=== PATIENT | female | born 1995 | race Hispanic/Latino ===

== ENCOUNTER 2017-06-06 07:36 | Inpatient (IN) | payer OTHER ==
[~2017-06-06] VITALS: Ht 162.6 cm; Wt 75.0 kg
[2017-06-06] VITALS (13 sets, daily range): BP systolic 100–120; BP diastolic 51–70
[2017-06-06] MEDS ORDERED: OXYTOCIN 30 UNITS IN 0.9% NaCl 500ML IV BAG (J2590) As Ordered ONE (08:37)
[2017-06-06] MEDS ORDERED: LR 1,000 ML IV SCH (10:07)
[2017-06-06] MEDS ORDERED: LACTATED RINGER'S 1000 ML IV STA (10:07)
[2017-06-06] MEDS ORDERED: OXYTOCIN DRIP 30 UNITS in APPROPRIATE DILUENT 1 EA IV SCH (10:11)
[2017-06-06] MEDS ORDERED: ANUSOL HC CREAM 30GM TOP PRN (10:15)
[2017-06-06] MEDS ORDERED: miSOPROStol 200 MCG TAB (S0191) PR ONE (10:15)
[2017-06-06] MEDS ORDERED: MOM 30ML SUSPENSION UDC PO PRN (10:15)
[2017-06-06] MEDS ORDERED: DIBUCAINE 1% OINTMENT 30GM TOP PRN (10:15)
[2017-06-06] MEDS ORDERED: PROMETHAZINE 25 MG TAB PO PRN (10:15)
[2017-06-06] MEDS ORDERED: ONDANSETRON 4MG/2ML VIAL (J2405) IV PRN (10:15)
[2017-06-06] MEDS ORDERED: DOCUSATE SODIUM 100 MG CAP PO PRN (10:15)
[2017-06-06] MEDS ORDERED: LIDOCAINE 1% MDV INJ 50 ML VIAL INFIL ONE (10:15)
[2017-06-06] MEDS ORDERED: ACETAMINOPHEN 500 MG TAB PO PRN (10:15)
--- NOTE | 2017-06-06 10:25 | HPEPDOC ---
Obstetrical History & Physical General Date of Admission Jun 06, 2017 at 08:33 History of Present Illness HISTORY AND PHYSICAL [id number] @ 1024 21 yo presented to L&D @ 39+2 by LMP and 9+6 wk US in active labor. She progressed from 3cm to complete in 30 min. Precipitous delivery. S: pt is very uncomfortable with a friend at bedside O: LABS GBS negative Rubella immune O positive HEP B non-reactive HIV negative, RPR NR varicella immune GC/CT negative CBC- 9.2/13.4/40.6/258 PMH- DENIES PSH- wisdom teeth OB hx- - F 7 lbs 12 oz, with extreme tearing, PPH with blood transfusion [employer]ER hx- denies [id number] Flu vaccine- [id number] PROBLEM LIST 1. short interval 2. counseling done on C-S d/t pt hx of extreme tearing. A&O x 3, no LE edema noted, active pushing at time of arrival to room. A: 21 yo @ 39+2 in active labor, pushing P: - see delivery summary Past Medical History Allergies Coded Allergies: No Known Allergies (Unverified , 06/06/17) Physical Examination Physical Examination GENERAL: Alert and oriented times three. BREAST: . ABDOMEN: Gravid and non-tender to touch. FETUS: Is vertex (VTX) by sterile vaginal examination (SVE), fetus is vertex ( VTX) by Aditya. HEART RATE: Regular rate and rhythm. LUNGS: Clear to auscultation (CTA). EXTREMITIES: No edema. No clonus. Deep tendon reflexes (DTRs) + . Laboratory Data 24H LABS Laboratory Tests 2 06/06/17 08:46: Serology Scanned Report Hepatitis B Testing Assessment/Plan Assessment is a -year-old (G) para (P)--- at + weeks by -week ultrasound. Presents to Labor and Delivery (L&D) . 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 Diet: . Group B Streptococcus (GBS) [negative]. Labs and intravenous (IV) per unit protocol. Counseled on Pitocin and induction of labor (IOL). Lactated Ringers (LR): Bolus mL, then at mL/hr. Anticipate [normal spontaneous delivery ()]. C-S as appropriate. PHILLIP MCCARTHY CNM Jun 06, 2017 10:25
--- NOTE | 2017-06-06 10:32 | DNPDOC ---
[facility] Delivery Note Delivery Note DATE OF DELIVERY: [id number] @ 085 PREDELIVERY DIAGNOSIS: 39+2 weeks' gestation and labor. POST DELIVERY DIAGNOSIS: Delivered. PROCEDURE: Spontaneous vaginal delivery ADJUSTER ELECTRICAL CONTACTS: Priti Pimentel CNM ANESTHESIA: none ESTIMATED BLOOD LOSS: 3 mL. FINDINGS: 8 pound 14 ounce male infant, Score 7/8, cord around right leg x 1 DELIVERY SUMMARY: Patient is a 21-year-old 2 now para 2001 who was admitted to labor and delivery for active labor. Progressed to c/c/+2 and thin meconium noted with a strong desire to push; delivery was via of a viable male infant to a clean field; the presented occiput anterior with no nuchal cord noted; anterior shoulder(right) delivered with mild downward traction, then the posterior shoulder delivered with mild upward traction; remainder of corpus delivered spontaneously; cord wrapped around left leg x 1, placed on mother's lower abdomen. Bulb suction was performed and initial cleaning completed, then cord clamped x 2 and cut by myself; the child was taken to the warmer for continued resuscitation; pitocin was started with delivery of the anterior shoulder; 3 vessel cord and normal placenta were delivered without complications approx 10 minutes later; fundal massage was applied and vaginal vault was swept for clots; vagina and perineum examined; bilat vaginal wall lacerations note and repaired in the usual fashion and noted to be hemostic. Left sided labial tear noted hemostatic. Fundus firm at U-1. GNE=817 ml, had 7/8; mother and are bonding well and were stable in the delivery room; anticipate routine PP course. Delivering Provider: MADELYN Fowler KELLI C. CNM Jun 06, 2017 10:32
[2017-06-06] MEDS: IBUPROFEN 800 MG TAB PO PRN (18:08)
[2017-06-06 18:52] LABS: MEAN CORPUSCULAR HEMOGLOBIN 25.3 pg (27.0-33.0); MEAN CORPUSCULAR HGB CONC 32.6 g/dl (32.0-36.5); MEAN CORPUSCULAR VOLUME 77.5 fl (80.0-96.0); RED CELL DISTRIBUTION WIDTH 17.1 % (11.5-14.5); WHITE BLOOD COUNT 12.3 K/mm3 (4.0-10.0)
[2017-06-07] MEDS: IBUPROFEN 800 MG TAB PO PRN (01:38)
[2017-06-07 05:53] VITALS: BP 104/59
--- NOTE | 2017-06-07 06:47 | IPNPDOC ---
Progress Note Date of Service The patient was seen on 06/07/17 at 06:44. Progress Note BRIEF SUMMARY OF LABOR AND DELIVERY: PPD # 1 s/p of male 8 lbs 14 oz. Presented to L&D in active labor. Delivered shortly after arriving. Doing well. S: Denies SMITH, SOB, CP, f/c/n/v. Tolerating a regular diet. Voiding without difficulty, +flatus, no BM at this time. Pt used two [place]-pad overnight. Denies breast sx. O: A&O x 3, VS WNL, afebrile, HR RRR, no m/r/g, Lungs CTA, abdomen soft NTTP, fundus firm @ U-2 without tenderness No edema in bilat LE A: 21 yo G2 n P2002 s/p with bilat vaginal wall lacerations and repair, doing well PPD #1. P: Continue routine PP care as appropriate Ambulate Q 1 hour while awake Plan to discharge to home today Continue to assist with as needed Strict pelvic rest for 6-8 weeks Plan to discuss control options at 6 wk PP visit per pt request Regular diet Motrin and Tylenol PRN for discomfort VS, I&O, 24H, Fishbone Vital Signs/I&O Vital Signs Date Time Temp Pulse Resp B/P (MAP) Pulse Ox O2 Delivery O2 Flow Rate FiO2 06/07/17 05:53 97.3 73 18 104/59 (74) 97 Room Air I&O- Last 24 Hours up to 6 AM 06/07/17 05:59 Output Total 350 ml Balance -350 ml Laboratory Data 24H LABS Laboratory Tests 2 06/06/17 08:35: 06/06/17 08:46: Serology Scanned Report Hepatitis B Testing CBC/BMP Laboratory Tests 06/06/17 18:46 Red Blood Count 4.09, Mean Corpuscular Volume 77.5 L, Mean Corpuscular Hemoglobin 25.3 L, Mean Corpuscular Hemoglobin Concent 32.6, Red Cell Distribution Width 17.1 H PHILLIP MCCARTHY CNM Jun 07, 2017 06:47
[2017-06-07] MEDS ORDERED: INFLUENZA QUADRIVALENT PF VACCINE 0.5ML SYRINGE (90686) IM ONE (09:00)
[2017-06-07] MEDS ORDERED: PRENATAL VITAMINS CHEWABLE TABLET PO SCH (09:00)
[2017-06-07] MEDS ORDERED: ACET50TA PO (09:00)
[2017-06-07] MEDS ORDERED: COLA100C5 PO (09:02)
[2017-06-07] MEDS ORDERED: IBUP-1114 PO (09:02)
[2017-06-07] MEDS ORDERED: PRENTAB9 PO (09:02)
== END 2017-06-07 18:32 | disposition home or self-care (01) | DRG 775 ==
LOC: M LDO 07:36 → M LDI 08:33 → M OBS 13:28
PROVIDERS: ADMIT Midwife; ATTEND Midwife
PROC: 10E0XZZ Delivery of Products of Conception, External Approach (ICD-10-PCS; principal; 2017-06-06)
PROC: 0HQ9XZZ Repair Perineum Skin, External Approach (ICD-10-PCS; 2017-06-06)
DX: O62.3 Precipitate labor (principal); Z37.0 Single live birth; Z3A.39 39 weeks gestation of pregnancy; O77.0 Labor and delivery complicated by meconium in amniotic fluid; O69.82X0 Labor and delivery complicated by other cord entanglement, without compression, not applicable or unspecified; O70.0 First degree perineal laceration during delivery

== ENCOUNTER → 2019-02-17 | Outpatient (CLI) | payer OTHER ==
[~2019-02-17] MED LIST: COLA100C5 PO; IBUP-1114 PO; MAPA500T2 PO; PRENTAB9 PO
--- NOTE | 2019-02-18 07:03 | REP ---
Digital diagnostic unilateral right breast mammography with CAD and focused right breast sonography: History: Palpable lump times 2 weeks in the right breast. The patient is not sure she can feel it today. Positive family history. Mammographic findings: A skin marker is affixed to the skin at the site of the palpable lump which projects laterally in the right mid breast. Breast parenchyma is heterogeneously dense in a pattern which may inhibit the sensitivity of mammography. No mass lesion is visible mammographically. No architectural distortion, worrisome skin change, or suspicious microcalcification is seen on mammography images. Sonographic findings: Focused right breast sonography is performed at approximately 9 o'clock in the area of the palpable lump. There is a 7 x 6 x 5 mm hypoechoic area with an echogenic center at the site of the palpable lump. There is Doppler evidence of eccentric blood flow. This may be an intramammary lymph node, fibroadenoma, or other nodule. It is not a simple cyst. Impression: BIRADS category 3 probably benign right breast imaging. Hypoechoic nodule at the site of the palpable lump at 9 o'clock position in the right breast. Intramammary lymph node versus fibroadenoma are the likely etiologies. Clinical followup is advised and repeat sonography is recommended in 6 months provided the lesion remains stable clinically. BIRADS 3: BI-RADS/ACR category 3 mammogram. Probably Benign Findings. This mammogram was interpreted with the aid of an FDA-approved computer-aided detection system. The patient letter being requested is M3. Electronically Signed by Regan Jean MD 02/18/2019 11:48 A
== END ==
LOC: M RAD 11:22
PROVIDERS: ATTEND Family Medicine
DX: N63.10 Unspecified lump in the right breast, unspecified quadrant (principal)